=== PATIENT | male | born 1980 | race Caucasian/White ===

== ENCOUNTER 2018-08-20 08:04 | Day surgery (SDC) | payer BC ==
[2018-08-13 08:13] VITALS: BMI 40.5
[2018-08-20 09:47] LABS: INR 1.3; PROTHROMBIN TIME 14.6 SECONDS (9.7-12.2)
[2018-08-20] MEDS ORDERED: ceFAZolin IV 1 gm in Dextrose 2 GM/100 ML BAG IVPB ONE (14:10)
[2018-08-20] MEDS ORDERED: Propofol 10 mg/ml Inj (20 ML) ONE ×2 (14:40→17:53)
[2018-08-20] MEDS ORDERED: Midazolam 2 MG/2 ML VIAL ONE (14:40)
[2018-08-20] MEDS ORDERED: Bupivacaine 0.25% 20 ML INJ IJ ONE (17:41)
[2018-08-20] MEDS ORDERED: Neostigmine Methylsulfate 3mg/3ml Syringe IV ONE (17:45)
--- NOTE | 2018-08-20 18:17 | PCM.ANESB7 ---
Adductor Canal Block - Adductor Canal Block Date of Procedure: 08/20/18 Anesthiologist: Marli Pre-Procedure Diagnosis: s/p right knee arthroscopy with ACL reconstruction Post-Procedure Diagnosis: same Procedure Performed: Adductor Canal Block Right - Procedure Adductor Canal Block: The procedure was explained to the patient that it is for the post-operative pain management. Consent was obtained after a thorough discussion with the patient regarding the benefits and possible complications of local anesthetic adductor canal block of the femoral nerve. Standard monitors, as defined by the ASA, were applied to the patient. Time-out was held with the circulating nurse to confirm the appropriate block. After applying supplemental oxygen and administering IV Sedation as needed, the patient was placed in supine position with and the operative leg was flexed slightly at the knee and externally rotated as needed, and was kept anatomically stable. The mid-thigh of the right lower extremity was exposed. The ultrasound transducer was then applied transversely along the medial aspect, about midway down the thigh and the femoral artery and vein were identified in appropriate relation with the sartorius muscle. At this time, the femoral nerve was visualized lateral to the femoral artery within the canal. After thorough identification, this area area was prepped with chloraprep. At this point, a #22 gauge Stimuplex 4-inch needle was inserted in-plane in a [id number] orientation, and advanced toward the femoral nerve. Advancement was performed carefully under direct ultrasound visualization. After negative aspiration, 2cc of 0.25% Bupivacaine was injected and this was followed with 28cc of 0.25% Bupivacaine. Under ultrasound guidance the local anesthetics were observed spreading around the femoral nerve. The needle was removed intact and sterile dressing was applied. The patient had stable vital signs, was conscious and in no apparent distress. The patient tolerated the femoral nerve block well with stable vital signs.
[2018-08-20] MEDS: HYDROmorphone 0.5 mg/0.5 ml ISec IVP PRN ×3 (18:22→19:09)
[2018-08-20] MEDS ORDERED: Lactated Ringer's 1,000 ML IV ONE (19:30)
[2018-08-20 19:43] VITALS: TEMP 98.4
[2018-08-20] MEDS ORDERED: Oxycodone/Acetaminophen 5/325 mg Tab PO STA (21:05)
[2018-08-20] MEDS ORDERED: Oxycodone/Acetaminophen 5/325 mg Tab ONE (21:13)
[2018-08-20 22:41] VITALS: BP 128/73; PULSE 84; RESP 20; O2SAT 99
--- NOTE | 2018-10-18 07:08 | OP ---
PROCEDURE DATE: 08/20/2018 PREOPERATIVE DIAGNOSES: Right knee: 1. High-grade partial anterior cruciate ligament tear with instability. 2. Medial meniscal tear. 3. Synovitis. 4. Fat pad inflammation. 5. Chondromalacia. POSTOPERATIVE DIAGNOSES: Right knee: 1. High-grade partial anterior cruciate ligament tear with resulting grade 3 instability (behaving as a complete anterior cruciate ligament tear). 2. Medial meniscal tear (red-red zone peripheral tear at posterior horn). 3. Lateral meniscal tear (free as complex tear anterior horn, superior surface not repairable; peripheral red-red zone tear with resulting hypermobility at posterior horn anterior to popliteal hiatus, repairable). 4. Synovitis, all three compartments. 5. Hypertrophic and inflamed fat pad anteriorly causing anterior impingement and pain with extension. 6. Symptomatic medial plica band. 7. 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 PROCEDURES: Right knee, arthroscopic assisted: 1. Anterior cruciate ligament reconstruction with allograft hamstring. 2. All-inside medial meniscal repair. 3. Arthroscopic partial lateral meniscectomy with stabilization. 4. Arthroscopic extensive synovectomy of all three compartments. 5. Arthroscopic resection and debridement of hypertrophic fat pad. 6. Arthroscopic resection and debridement of symptomatic medial plica band. 7. Arthroscopic chondroplasty of medial femoral condyle. 8. Arthroscopic intraarticular platelet-rich plasma injection. SURGEON: Payton Herrera MD TISSUE PACKER: Arelis Francois PA-C JUSTIFICATION FOR TISSUE PACKER: Arelis Francois is a certified physician assistant facility manager whose skilled surgical assistance was an absolute necessity for successful completion of the procedure as he provided skilled surgical assistance with preparation of allograft, ACL graft, facilitating all-inside medial meniscal repair, preparation of femoral ACL tunnel, preparation of tibial ACL tunnel, passage of graft and femoral sided fixation, final fixation with placement of tibial sided fixation while maintaining good tension and positioning of extremity, facilitating partial lateral meniscectomy and stabilization of remnant lateral meniscus, handling of arthroscopic equipment and facilitating extensive synovectomy, resection of fat pad, resection of plica. Fitting and placement in postoperative hinged knee brace. Arelis Francois was present for the entire case and was an absolute necessity for the successful completion of the procedure. ANESTHESIA: General endotracheal anesthesia with a postop regional nerve block placed by anesthesia staff in PACU. COMPLICATIONS: None. SPECIMENS: None. DRAINS: None. TOURNIQUET TIME: Zero minute. ESTIMATED BLOOD LOSS: 10 mL. DISPOSITION: The patient was extubated and transferred to PACU in stable condition having tolerated the procedure well. IMPLANTS: 1. Arthrex 12 mm BioComposite Delta Interference screw for tibial sided fixation of ACL allograft, TightRope with TightRope suture for femoral sided fixation of ACL allograft, two semitendinosus allograft tendons for the ACL graft construct. 2. PowerCard all-inside Sequent meniscal repair system, 16 implants used for the all-inside medial meniscal repair (4 kits open), 8 implants used for the lateral meniscus stabilization and joint preservation after the partial lateral meniscectomy was completed (2 kits open). INDICATIONS FOR SURGERY: The patient is a 38-year-old male with no significant past medical history, presented to the office for the first time under my care on 02/05/2017 with bilateral knee pain and instability, right knee much worse than the left. Initial evaluation in the office and physical examination yielded clinical suspicion for bilateral knee ACL tears and medial meniscal tears. As stated before subjectively, the patient reported the right knee with worse instability and multiple episodes of giving way as well as worse medial joint line pain. He was referred for an MRI of the right knee, which was done at [facility] on 02/16/2017, which was read as: 1. No evidence of acute bony pathology. No joint effusion. No Soliz cyst. 2. Medial meniscal posterior horn root radial tear, posterior horn intrasubstance degenerative changes. 3. ACL, severe injury/severe strain with high-grade partial tear. PCL buckling. MCL is intact. Quadriceps tendon, patellar tendon, mild insertional tendonitis, mild popliteal tendon tenosynovitis. Due to the degree of pain that he was in on initial presentation, he underwent cortisone mixture injection to the right knee that provided him with near complete resolution of pain and ability to regain range of motion and ambulate without a limp. He was placed in an [id number] ACL brace to separate his knee as he reported multiple episodes of giving way and falling with difficulty at work and he was referred to Physical Therapy, started on antiinflammatory medication in the form of Mobic and antiinflammatory compound screen. This was all back in January 2017 when he initially presented under my care. He also had severe lower back pain that radiated to bilateral lower extremities with numbness and tingling of bilateral feet that was causing him significant dysfunction and disability. He was referred to a pain management doctor/colleague of [facility] for treatment of the lumbar spine issue. He underwent multiple injections and physical therapy to treat his back pain which eventually did resolve and improve. He returned under my care on 07/05/2018 as his bilateral knee pain and his stability continued to progressively worsen. Due to the amount of time between his initial treatment and his followup, he was referred for a repeat right knee MRI which was done at [facility] on 06/26/2018 and read as: 1. Interval progression of the medial joint compartment [id number] chondral changes. Possible patellar apex focal chondromalacia of patella. Small joint effusion. No Soliz cyst. 2. Medial meniscal posterior horn radial tear, posterior horn degenerative change, possible peripheral marginal horizontal tear. 3. ACL severe degenerative change, sprain, tear. PCL buckling with severe degenerative change. MCL grade 2 sprain. Quadriceps tendon, patellar tendon tendinosis/insertional tendinitis. Mild popliteal tenosynovitis. I reviewed the MRI imaging with the patient and we had a long discussion about treatment options. 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 After reviewing the imaging and failing conservative treatments over the course of one year and inability to return to function without the brace on, he was indicated for right knee surgery in the form of right knee diagnostic arthroscopy with evaluation of the ACL tear and likely proceeding with ACL reconstruction with allograft tendon, medial meniscal repair versus partial meniscectomy, synovectomy and all related indicated arthroscopic procedures. He was referred to his primary care physician for preadmission testing and preoperative medical clearance. The risks, benefits and alternatives to the procedure were discussed in length with the patient with the risks including but not limited to infection, neurovascular damage, loss of function, inability to return to preinjury level of activity and occupation, failure of reconstruction graft, failure of fixation, failure of meniscus repair, chondrolysis, accelerated degenerative wear and need for total knee arthroplasty in the near future, development of blood clots including DVT and PE, development of chronic pain and disability, anesthesia reactions including , cardiopulmonary perioperative compromise. After answering of all these questions in [place] and his [place] language of [place], for which I am fluent, he stated that he understood the risks and wished to proceed with surgery. He watched surgical animation videos and diagnosis animation videos on multiple occasions in the office during his preoperative visit and stated that he had a good understanding of his multiple diagnoses as well as his procedure. I reviewed at length with him the postop rehabilitation protocol and he stated that he had a good understanding of the need for compliance with the rehabilitation protocol postoperatively to maximize the chance of having successful outcome after surgery. He was referred to his primary care physician for preadmission testing and preoperative medical evaluation, which was discussed at [facility] on 08/20/2018. PROCEDURE IN DETAIL: The patient was identified in the preoperative holding area, and the right knee was marked for surgery. Once again as described above, the risks, benefits and alternatives of the procedure were discussed at length with the patient, and informed consent was obtained. After a brief discussion with anesthesia staff, the patient was brought to the operating room and placed in a well-padded operating room table with all bony prominences and superficial neurovascular structures well padded. Further details to follow. Payton Herrera MD
== END 2018-08-20 22:00 | disposition home or self-care (01) ==
LOC: C.SDS 08:04
PROVIDERS: ATTEND Student in an Organized Health Care Education/Training Program
DX: S83.511D Sprain of anterior cruciate ligament of right knee, subsequent encounter (principal); S83.231D Complex tear of medial meniscus, current injury, right knee, subsequent encounter; S83.271D Complex tear of lateral meniscus, current injury, right knee, subsequent encounter; M67.861 Other specified disorders of synovium, right knee; M94.261 Chondromalacia, right knee; M65.9 Synovitis and tenosynovitis, unspecified
CPT/HCPCS: 0232T; 29876; 29880; 29888; 36415; 85610; 85730; 97116; 97161; C1713; C1762; G8978; G8979; G8980; J0171; J0690; J1170; J2250; J2405; J2704; J2710; J2765; J3010; J7120